=== PATIENT | female | born 1970 | race Caucasian/White ===

== ENCOUNTER 2017-09-30 10:27 | Emergency (ER) | payer OTHER ==
[~2017-09-30] VITALS: Ht 149.9 cm; Wt 75.0 kg
[~2017-09-30 10:27] MED LIST: ATV5X PO; DIPH1TAB87 PO; DPKEC250 PO; HYDR-5688 PO; RANI150T2 PO
[2017-09-30 10:31] VITALS: TEMP 37.1; Ht 149.9 cm; Wt 75.0 kg
[2017-09-30] MEDS ORDERED: HYDR-5688 PO (10:57)
[2017-09-30] MEDS ORDERED: ATV/1 PO (10:57)
[2017-09-30] MEDS ORDERED: DIVA250T4 PO (10:57)
[2017-09-30] MEDS ORDERED: RANI150T85 PO (10:57)
[2017-09-30] MEDS ORDERED: ACETAMINOPHEN 500 MG TAB PO STA (11:04)
[2017-09-30] MEDS ORDERED: COUGH DROP (SUGAR FREE) LOZ 24 LOZ/1 BOX LOZ STA (11:04)
[2017-09-30] MEDS ORDERED: IBUPROFEN 600 MG TAB PO STA (11:04)
--- NOTE | 2017-09-30 11:06 | EMERGENCY ROOM VISIT NOTE ---
History Report prepared by Lupe: Rodriguez Ramos Under the Supervision of: Dr. Phan Ibrahim M.D. First contact with patient: 10:34 Chief Complaint: FLU LIKE SX Stated Complaint: FLU LIKE SYMPTOMS History of Present Illness The patient is a 47 year old white female with a past medical history of spina bifida, hydrocephalus, seizure disorder, cholecystectomy who presents to the ED with a cc of persistent flu like symptoms beginning 4-5 days ago. Positive sore throat, fatigue, abdominal pain, and cough. Negative nausea, vomiting, and leg swelling. She has had a sick contact this week with the flu. She does not smoke or use alcohol. Source of History: patient Onset: 4-5 days ago Position: other (global) Quality: other (flu like symptoms) Timing: other (persistent) Associated Symptoms: + sorethroat, + cough, + abdominal pain, No nausea, No vomiting Note: Associated symptoms: Fatigue Review of Systems See HPI for pertinent positives and negatives. A total of ten systems were reviewed and were otherwise negative. Past Medical & Surgical Medical Problems: (1) Spina bifida Surgical Problems: (1) History of cholecystectomy Social History Smoking Status: Never Smoker Alcohol Use: none Drug Use: none Marital Status: single Housing Status: lives with family Current/Historical Medications Scheduled Divalproex Sodium (Depakote Delay Rel), 250 MG PO BID Loratadine (Claritin), 10 MG PO DAILY Oseltamivir (Tamiflu), 75 MG PO BID Ranitidine (Zantac), 150 MG PO BID Scheduled PRN Hydrocodone/Acetaminophen 5MG/325MG ([place] 5MG/325MG), 1 TABLET PO Q4 PRN for Pain Lorazepam (Ativan), 1 MG PO TID PRN for Anxiety Allergies Coded Allergies: Oxycodone (Unverified Allergy, Mild, GI SYMPTOMS, 09/30/17) Cetirizine (Unverified Allergy, Unknown, ., 09/30/17) Clarithromycin (Verified Allergy, Unknown, UNKNOWN, 09/30/17) Physical Exam Vital Signs Date Time Temp Pulse Resp B/P (MAP) Pulse Ox O2 Delivery O2 Flow Rate FiO2 09/30/17 14:57 92 18 130/92 96 09/30/17 14:04 81 18 115/83 96 Room Air 09/30/17 12:30 79 18 119/81 96 Room Air 09/30/17 10:31 37.1 123 16 125/78 95 Physical Exam GENERAL: Awake, alert, well-appearing, NAD, thinning hair, short stature HENT: Normocephalic, atraumatic. EYES: Normal conjunctiva. Sclera non-icteric. NECK: Supple. No nuchal rigidity. FROM. RESPIRATORY: CTAB, no rhonchi, wheezing, crackles CARDIAC: tachy, RR, no MRG ABDOMEN: Soft, NTND, BS+ MSK: No chest wall TTP, no LE edema NEURO: GCS 15, CN 2-12 intact, moves all 4s on command SKIN: No rash or jaundice noted. Medical Decision & Procedures ER Provider Diagnostic Interpretation: Radiology results as stated below per my review and radiologist interpretation: CHEST 2 VIEWS ROUTINE HISTORY: cough COMPARISON: Chest 06/05/2016. FINDINGS: The lungs are clear. The heart is normal in size. No pleural effusions. No pneumothorax. Cholecystectomy. Left-sided shunt catheter is partially visualized within the anterior chest. IMPRESSION: No acute process. Electronically signed by: Rashawn Llamas M.D. 09/30/2017 12:06 PM Dictated Date/Time: 09/30/2017 12:05 PM Laboratory Results 09/30/17 11:30 Red Blood Count 4.20, Mean Corpuscular Volume 90.2, Mean Corpuscular Hemoglobin 31.9, Mean Corpuscular Hemoglobin Concent 35.4, Mean Platelet Volume 11.4, Neutrophils (%) (Auto) 77.5, Lymphocytes (%) (Auto) 10.4, Monocytes (%) (Auto) 11.5, Eosinophils (%) (Auto) 0.2, Basophils (%) (Auto) 0.2, Neutrophils # (Auto ) 4.16, Lymphocytes # (Auto) 0.56, Monocytes # (Auto) 0.62, Eosinophils # (Auto ) 0.01, Basophils # (Auto) 0.01 09/30/17 11:30 Test 09/30/17 11:30 09/30/17 11:37 White Blood Count 5.37 K/uL (4.8-10.8) Red Blood Count 4.20 M/uL (4.2-5.4) Hemoglobin 13.4 g/dL (12.0-16.0) Hematocrit 37.9 % (37-47) Mean Corpuscular Volume 90.2 fL (80-100) Mean Corpuscular Hemoglobin 31.9 pg (25-34) Mean Corpuscular Hemoglobin Concent 35.4 g/dl (32-36) Platelet Count 140 K/uL (130-400) Mean Platelet Volume 11.4 fL (7.4-10.4) Neutrophils (%) (Auto) 77.5 % Lymphocytes (%) (Auto) 10.4 % Monocytes (%) (Auto) 11.5 % Eosinophils (%) (Auto) 0.2 % Basophils (%) (Auto) 0.2 % Neutrophils # (Auto) 4.16 K/uL (1.4-6.5) Lymphocytes # (Auto) 0.56 K/uL (1.2-3.4) Monocytes # (Auto) 0.62 K/uL (0.11-0.59) Eosinophils # (Auto) 0.01 K/uL (0-0.5) Basophils # (Auto) 0.01 K/uL (0-0.2) RDW Standard Deviation 41.4 fL (36.4-46.3) RDW Coefficient of Variation 12.6 % (11.5-14.5) Immature Granulocyte % (Auto) 0.2 % Immature Granulocyte # (Auto) 0.01 K/uL (0.00-0.02) Anion Gap 9.0 mmol/L (3-11) Est Creatinine Clear Calc Drug Dose 80.8 ml/min Estimated GFR () 108.3 Estimated GFR (Non- 93.4 BUN/Creatinine Ratio 9.2 (10-20) Calcium Level 8.7 mg/dl (8.5-10.1) Influenza Type A Antigen POS for Influ A (NEG) Influenza Type B Antigen Neg for Influ B (NEG) Laboratory results reviewed by me Medications Administered Medications (Trade) Dose Ordered Sig/Saroj Route Start Time Stop Time Status Last Admin Dose Admin Ibuprofen (Motrin Tab) 600 mg NOW STAT PO 09/30/17 11:04 09/30/17 11:07 DC 09/30/17 11:34 600 MG Acetaminophen (Tylenol Tab) 1,000 mg NOW STAT PO 09/30/17 11:04 09/30/17 11:07 DC 09/30/17 11:34 1,000 MG Menthol (Nice Sathish) 1 sathish NOW STAT SATHISH 09/30/17 11:04 09/30/17 11:07 DC 09/30/17 11:35 1 SATHISH Benzonatate (Tessalon Perles Cap) 100 mg NOW ONCE PO 09/30/17 11:15 09/30/17 11:16 DC 09/30/17 11:34 100 MG Sodium Chloride 1,000 ml @ 999 mls/hr Q1H1M STAT IV 09/30/17 11:07 09/30/17 12:07 DC 09/30/17 11:33 999 MLS/HR Oseltamivir Phosphate (Tamiflu Cap) 75 mg NOW STAT PO 09/30/17 13:35 09/30/17 13:36 DC 09/30/17 14:03 75 MG ED Course 1056: The patient was evaluated in room C10. A complete history and physical exam was performed. 1415: I reevaluated the patient. Discussed results and discharge instructions: she verbalized understanding and agreement. The patient is ready for discharge. Medical Decision The patient is a 47 year old white female with a past medical history of spina bifida and cholecystectomy who presents to the ED with a cc of persistent flu like symptoms beginning 4-5 days ago. Differential diagnosis: Etiologies such as viral syndrome, otitis, pharyngitis, pneumonia, influenza, meningitis, urinary tract infection, sepsis, bacteremia, as well as others were entertained. Patient was seen and evaluated the bedside. Patient has had some persistent flu like symptoms acutely worse over the last 1-2 days of the present for approximately 45. Patient did have some tachycardia noted. Patient did have blood work completed along with a flu swab and chest x-ray. Patient's chest x- ray clear and the patient's blood work is fairly unremarkable. Patient did have positive flu. Given that her symptoms have acutely worsened over the last 1-2 days patient was given first dose of Tamiflu. I did ask the pharmacist to check a sugar no drug interactions with her antiseizure medications. Patient was deemed suitable for outpatient follow-up and treatment at this time. Upon reassessment the patient was feeling improved. Patient was given strict follow- up, discharge, and return precautions. All questions were answered. Patient was deemed suitable for outpatient follow-up at this time. Patient agreed with the plan of care and was safely discharged home. Medication Reconcilliation Current Medication List: was personally reviewed by me Blood Pressure Screening Patient's blood pressure: Normal blood pressure Impression Primary Impression: Influenza A Scribe Attestation The scribe's documentation has been prepared under my direction and personally reviewed by me in its entirety. I confirm that the note above accurately reflects all work, treatment, procedures, and medical decision making performed by me. Departure Information Dispostion Home / Self-Care Prescriptions Oseltamivir (Tamiflu) 75 Mg Cap 75 MG PO BID for 5 Days, #9 CAP Prov: Phan Ibrahim M.D. 09/30/17 Referrals Andres Novak M.D. (PCP) Patient Instructions Dehydration, ED Flu, My [facility] Additional Instructions Please return to the emergency department if you have worsening or recurrent symptoms not amenable to at-home treatment. Please call for a follow-up appointment with her primary care physician. Please take your medications as prescribed. If you have other concerns and/or complaints please feel free to also call your primary care physician's office or return the ED for further evaluation, management, and treatment. You may take 600 mg Ibuprofen every 6 hours as needed for pain with food for no more than 2 consecutive days. You may take tylenol 1000 mg every 6 hours as needed for pain. You may take motrin and tylenol separately or at the same time. Continue to hydrate with clear liquids. Take your medications as prescribed. If taking an antibiotic consider taking a probiotic and/or eating yogurt, but at the least, please take with food as it can cause upset stomach. If culture results are not available at discharge, if they are positive for concern of infection, you will be informed of the results as soon as they are available. If you were seen between 11pm and 7AM all radiology reads will be re-read by our in house staff. If any major discrepancies are discovered, you will be notified. You have been examined and treated today on an emergency basis only. This is not a substitute for, or an effort to provide, complete comprehensive medical care. It is impossible to recognize and treat all injuries or illnesses in a single emergency department visit. It is therefore important that you follow up closely with [facility], your PCP, and/or your specialist(s). Call as soon as possible for an appointment. Thank you for your time and consideration. I look forward to speaking with you again soon. Please don't hesitate to call us if you have any questions.
[2017-09-30] MEDS ORDERED: SODIUM CHLORIDE 0.9% 1000ML 1,000 ML IV STA (11:07)
[2017-09-30] MEDS ORDERED: CLR10 PO (11:14)
[2017-09-30] MEDS ORDERED: BENZONATATE 100MG CAP PO ONE (11:15)
[2017-09-30 11:39] LABS: BASO % 0.2 %; BASO ABS # 0.01 K/uL (0-0.2); EOS % 0.2 %; EOS ABS # 0.01 K/uL (0-0.5); HEMATOCRIT 37.9 % (37-47); HEMOGLOBIN 13.4 g/dL (12.0-16.0); IG# 0.01 K/uL (0.00-0.02); LYMPH % 10.4 %; LYMPH ABS # 0.56 K/uL (1.2-3.4); MEAN CELL VOLUME 90.2 fL (80-100); MEAN CORPUSCULAR HEMOGLOBIN 31.9 pg (25-34); MEAN CORPUSCULAR HGB CONC 35.4 g/dl (32-36); MEAN PLATELET VOLUME 11.4 fL (7.4-10.4); MONO % 11.5 %; MONO ABS # 0.62 K/uL (0.11-0.59); NEUT % 77.5 %; NEUT ABS # 4.16 K/uL (1.4-6.5); PLATELET COUNT 140 K/uL (130-400); RED CELL DISTRIBUTION WIDTH CV 12.6 % (11.5-14.5); RED CELL DISTRIBUTION WIDTH SD 41.4 fL (36.4-46.3); WHITE BLOOD COUNT 5.37 K/uL (4.8-10.8)
[2017-09-30 11:56] LABS: CALCIUM 8.7 mg/dl (8.5-10.1); CREATININE 0.76 mg/dl (0.60-1.20); POTASSIUM 3.4 mmol/L (3.5-5.1)
--- NOTE | 2017-09-30 12:07 | DIAGNOSTIC IMAGING REPORT ---
CHEST 2 VIEWS ROUTINE HISTORY: cough COMPARISON: Chest 06/05/2016. FINDINGS: The lungs are clear. The heart is normal in size. No pleural effusions. No pneumothorax. Cholecystectomy. Left-sided shunt catheter is partially visualized within the anterior chest. IMPRESSION: No acute process. Electronically signed by: Rashawn Llamas M.D. 09/30/2017 12:06 PM Dictated Date/Time: 09/30/2017 12:05 PM
[2017-09-30 13:18] LABS: INFLUENZA B ANTIGEN Neg for Influ B (NEG)
[2017-09-30] MEDS ORDERED: OSELTAMIVIR PHOSPHATE 75 MG CAP PO STA (13:35)
[2017-09-30] MEDS ORDERED: OSEL75CA12 PO (14:27)
[2017-09-30 14:57] VITALS: BP 130/92; PULSE 92; O2SAT 96
== END 2017-09-30 14:59 | disposition home or self-care (01) ==
LOC: C.EDB 10:29 → C.EDC 14:59
DX: J10.1 Influenza due to other identified influenza virus with other respiratory manifestations (principal); Q05.9 Spina bifida, unspecified; Z79.899 Other long term (current) drug therapy; Z88.5 Allergy status to narcotic agent; Z88.1 Allergy status to other antibiotic agents; Z88.8 Allergy status to other drugs, medicaments and biological substances

== ENCOUNTER 2017-10-20 09:09 | Emergency (ER) | payer OTHER ==
[~2017-10-20] VITALS: Ht 149.9 cm; Wt 75.0 kg
[~2017-10-20 09:09] MED LIST changes: +ATV/1 PO; -ATV5X PO; +CLR10 PO; -DIPH1TAB87 PO; +DIVA250T4 PO; -DPKEC250 PO; -RANI150T2 PO; +RANI150T85 PO
[2017-10-20 09:22] VITALS: TEMP 37; Ht 149.9 cm; Wt 75.0 kg
[2017-10-20] MEDS ORDERED: FLUT50SP45 NAE (10:14)
[2017-10-20] MEDS ORDERED: HYDROCODONE/ACETAMIN 5/325MG TAB PO STA (10:16)
--- NOTE | 2017-10-20 10:38 | DIAGNOSTIC IMAGING REPORT ---
L KNEE 2 VIEWS ROUTINE CLINICAL HISTORY: Left knee pain COMPARISON: None. DISCUSSION: No fractures or dislocations are visualized. There is a quadriceps insertional calcification at the superior patellar pole level. There is a small bone island within the proximal tibia. IMPRESSION: 1. No fractures, dislocations, or destructive lesions identified Electronically signed by: Dylan Pineda M.D. 10/20/2017 10:37 AM Dictated Date/Time: 10/20/2017 10:36 AM
--- NOTE | 2017-10-20 10:39 | DIAGNOSTIC IMAGING REPORT ---
L HIP UNILATERAL 2 VIEWS CLINICAL HISTORY: Left hip pain COMPARISON: None. DISCUSSION: No fractures or dislocations are visualized. The joint space appears well-preserved for age. IMPRESSION: Unremarkable conventional radiographic evaluation of the left hip. Electronically signed by: Dylan Pineda M.D. 10/20/2017 10:38 AM Dictated Date/Time: 10/20/2017 10:37 AM
--- NOTE | 2017-10-20 11:25 | DIAGNOSTIC IMAGING REPORT ---
ULTRASOUND L VENOUS DOPP LOWER EXT UNILAT CLINICAL HISTORY: left leg pain COMPARISON STUDY: No previous studies for comparison. FINDINGS: Real-time and color flow Doppler imaging were performed. Flow was seen within the femoral, popliteal and calf veins with no intraluminal thrombus demonstrated. The saphenous vein is patent. There is a 27 x 8 x 18 mm fluid collection medial to the left knee, possibly representing a joint effusion. IMPRESSION: No evidence of left lower extremity DVT Electronically signed by: Dylan Pineda M.D. 10/20/2017 11:24 AM Dictated Date/Time: 10/20/2017 11:23 AM
[2017-10-20 14:08] VITALS: BP 127/102; PULSE 100; O2SAT 96
--- NOTE | 2017-10-20 18:13 | EMERGENCY ROOM VISIT NOTE ---
History Report prepared by Lupe: Renea Jama Under the Supervision of: Dr. Josh Beard M.D. First contact with patient: 10:08 Chief Complaint: KNEEPAIN Stated Complaint: LEG, KNEE,HIP PAIN LEFT History of Present Illness The patient is a 47 year old female who presents to the Emergency Room with complaints of left leg and hip pain beginning one week precinct captain. She rates the pain as a 7/10 in severity. She notes the pain radiates from a little above the knee to a little below the knee. She reports that she took half of a hydrocodone, but that did not alleviate her pain. Pt denies LOC, headache, fevers, chills, diaphoresis, visual changes, neck pain, chest pain, breathing difficulties, nausea, vomiting, abdominal pain, back pain, melena, hematochezia, urinary symptoms, numbness, weakness, lymphadenopathy, rash, or other complaints. Source of History: patient Position: leg (left), other (left hip) Symptom Intensity: 02/24 Review of Systems See HPI for pertinent positives and negatives. A total of ten systems were reviewed and were otherwise negative. Past Medical & Surgical Medical Problems: (1) Ankle sprain (2) Facial infection (3) Facial swelling (4) Foot sprain (5) Hydrocephalus (6) Spina bifida Surgical Problems: (1) History of cholecystectomy Social History Problems: (1) Facial pain Family History Cancer Diabetes mellitus FHx: kidney disease FHx: seizures Heart disease High blood pressure Social History Smoking Status: Never Smoker Alcohol Use: none Drug Use: none Marital Status: single Housing Status: lives with family Current/Historical Medications Scheduled Divalproex Sodium (Depakote Delay Rel), 250 MG PO BID Fluticasone Propionate (Nasal) (Allergy Nasal [place] [address]), 2 SPRAYS SILVIO DAILY Loratadine (Claritin), 10 MG PO DAILY Ranitidine (Zantac), 150 MG PO DAILY Scheduled PRN Hydrocodone/Acetaminophen 5MG/325MG ([place] 5MG/325MG), 1 TABLET PO Q4 PRN for Pain Lorazepam (Ativan), 1 MG PO TID PRN for Anxiety Allergies Coded Allergies: Oxycodone (Unverified Allergy, Mild, GI SYMPTOMS, 10/20/17) Cetirizine (Unverified Allergy, Unknown, ., 10/20/17) Clarithromycin (Verified Allergy, Unknown, UNKNOWN, 10/20/17) Physical Exam Vital Signs Date Time Temp Pulse Resp B/P (MAP) Pulse Ox O2 Delivery O2 Flow Rate FiO2 10/20/17 14:08 100 16 127/102 96 Room Air 10/20/17 11:35 90 16 110/86 97 Room Air 10/20/17 09:22 37.0 118 16 148/106 97 Physical Exam GENERAL: Awake, alert, well-appearing, in no distress HENT: Normocephalic, atraumatic. Oropharynx unremarkable. EYES: Normal conjunctiva. Sclera non-icteric. NECK: Supple. No nuchal rigidity. FROM. No masses. RESPIRATORY: Clear to auscultation. No wheezes. CARDIAC: Borderline tachycardic rate. Normal rhythm. No murmurs. No rubs. Extremities warm and well perfused. Pulses equal. No JVD. GI: Soft, non-distended. No tenderness to palpation. No rebound or guarding. No masses. RECTAL: Deferred. MUSCULOSKELETAL: Atraumatic. Chest examination reveals no tenderness. The back is symmetrical on inspection without obvious abnormality. There is no CVA tenderness to palpation. No joint edema. LOWER EXTREMITIES: Patella tenderness to the left side, no warmth, no redness, no joint effusion, negative Ivan's sign. NEURO: Normal sensorium. No sensory or motor deficits noted. SKIN: No rash or jaundice noted. Medical Decision & Procedures ER Provider Diagnostic Interpretation: Radiology results as stated below per my review and radiologist interpretation: ULTRASOUND L VENOUS DOPP LOWER EXT UNILAT CLINICAL HISTORY: left leg pain COMPARISON STUDY: No previous studies for comparison. FINDINGS: Real-time and color flow Doppler imaging were performed. Flow was seen within the femoral, popliteal and calf veins with no intraluminal thrombus demonstrated. The saphenous vein is patent. There is a 27 x 8 x 18 mm fluid collection medial to the left knee, possibly representing a joint effusion. IMPRESSION: No evidence of left lower extremity DVT Electronically signed by: Dylan Pineda M.D. 10/20/2017 11:24 AM Dictated Date/Time: 10/20/2017 11:23 AM L KNEE 2 VIEWS ROUTINE CLINICAL HISTORY: Left knee pain COMPARISON: None. DISCUSSION: No fractures or dislocations are visualized. There is a quadriceps insertional calcification at the superior patellar pole level. There is a small bone island within the proximal tibia. IMPRESSION: 1. No fractures, dislocations, or destructive lesions identified Electronically signed by: Dylan Pineda M.D. 10/20/2017 10:37 AM Dictated Date/Time: 10/20/2017 10:36 AM L HIP UNILATERAL 2 VIEWS CLINICAL HISTORY: Left hip pain COMPARISON: None. DISCUSSION: No fractures or dislocations are visualized. The joint space appears well-preserved for age. IMPRESSION: Unremarkable conventional radiographic evaluation of the left hip. Electronically signed by: Dylan Pineda M.D. 10/20/2017 10:38 AM Dictated Date/Time: 10/20/2017 10:37 AM Medications Administered Medications (Trade) Dose Ordered Sig/Saroj Route Start Time Stop Time Status Last Admin Dose Admin Acetaminophen/ Hydrocodone Bitart ([place] 5/325 Tab) 1 tab NOW STAT PO 10/20/17 10:16 10/20/17 10:18 DC 10/20/17 10:40 1 TAB ED Course 1012: The patient was evaluated in room C2. A complete history and physical exam was performed. 1016: [place] 5/325 Tab 1 tab PO 1239: I reevaluated the patient. Discussed results and discharge instructions: She verbalized understanding and agreement. The patient is ready for discharge. Medical Decision Triage Nursing notes reviewed. The patient's presentation and history were concerning for leg pain. Etiologies such as DVT, joint effusion, infection, muscular, lymphedema, as well as others were entertained. The patient was evaluated. Physically her examination was benign. There is no signs of infection. No signs of zoster. No trauma visible. No significant symptoms to suggest a radiculopathy. No saddle anesthesia. She underwent x- ray imaging of the knee and hip. This was unremarkable. She had good range of motion. Blood work was relatively unnecessary. The patient was given a dose of [place] which is her home prescription. She felt better. Ultrasound imaging did not reveal any evidence of DVT. The patient was allowed to rest. She will use her home medication. She will follow-up with her primary physician. This seems like a musculoskeletal issue. She has seen orthopedics in the past. She had no ill effects after 3 hours from from her medication prior to discharge. By the evaluation outlined above other emergent etiologies such as those listed in the differential, as well as others, were deemed relatively unlikely. The patient was educated about the findings as listed above. All questions were answered and the patient was pleased with the treatment. Return instructions were outlined and the patient was discharged in stable condition. The patient was referred to orthopedics for follow-up for a recheck of the current condition. Medication Reconcilliation Current Medication List: was personally reviewed by me Blood Pressure Screening Patient's blood pressure: Elevated blood pressure Blood pressure disposition: Referred to PCP Impression Primary Impression: Left leg pain Scribe Attestation The scribe's documentation has been prepared under my direction and personally reviewed by me in its entirety. I confirm that the note above accurately reflects all work, treatment, procedures, and medical decision making performed by me. Departure Information Dispostion Home / Self-Care Referrals Andres Novak M.D. (PCP) Forms HOME CARE DOCUMENTATION FORM, IMPORTANT VISIT INFORMATION Patient Instructions My [facility] Additional Instructions Use your hydrocodone prescription as follows: Hydrocodone/acetaminophen 5/325mg : Take 1-2 pills every 6 hours as needed for pain. Avoid additional Acetaminophen/Tylenol, alcohol, operating machinery or dangerous equipment, working on ladders or roofs, DRIVING, or situations where being under the influence may be dangerous. It is recommended to use a stool softener such as Colace, 100mg twice daily while taking this medication to avoid constipation. Rest and elevate your leg. Return to the ER immediately for any numbness, tingling, severe pain, extreme swelling in the extremity or as needed. Call [facility], [phone], tomorrow to arrange follow up for your leg. Follow-up with your primary care physician as discussed for a recheck of your current condition.
== END 2017-10-20 14:20 | disposition home or self-care (01) ==
LOC: C.EDB 09:10 → C.EDC 14:20
DX: M79.605 Pain in left leg (principal); Q05.4 Unspecified spina bifida with hydrocephalus; Z90.49 Acquired absence of other specified parts of digestive tract; Z88.6 Allergy status to analgesic agent; Z88.8 Allergy status to other drugs, medicaments and biological substances; Z88.1 Allergy status to other antibiotic agents; Z83.3 Family history of diabetes mellitus; Z82.49 Family history of ischemic heart disease and other diseases of the circulatory system; Z82.0 Family history of epilepsy and other diseases of the nervous system